=== PATIENT | female | born 1965 | race Two or more races ===

== ENCOUNTER 2020-12-27 09:30 | Outpatient (CLI) | payer OTHER | END 2020-12-27 10:30 | disposition home or self-care (01) | LOC: ASH CLINIC 09:30 | PROVIDERS: ATTEND Orthopaedic Surgery Sports Medicine | DX: Z23 Encounter for immunization (principal); U07.1 COVID-19 ==

== ENCOUNTER → 2021-03-31 | Outpatient (CLI) | payer OTHER | END | disposition home or self-care (01) | LOC: PPH VACUNA 07:00 | PROVIDERS: ATTEND Emergency Medicine Pediatric Emergency Medicine | DX: Z23 Encounter for immunization (principal) ==